=== PATIENT | female | born 1960 | race American Indian/Alaskan Native ===

== ENCOUNTER 2019-12-27 10:23 | Observation (INO) | payer MEDICAID ==
--- NOTE | 2019-12-27 11:01 | Emergency Department Report ---
Blank Doc - Documentation Documentation: 59-year-old female that presents with SOB and chest. This initial assessment/diagnostic orders/clinical plan/treatment(s) is/are subject to change based on patient's health status, clinical progression and re- assessment by fellow clinical providers in the ED. Further treatment and workup at subsequent clinical providers discretion. Patient/guardians urged not to elope from the ED as their condition may be serious if not clinically assessed and managed. Initial orders include: 1- Patient sent to MAIN ED for further evaluation and treatment 2- cardiac workup
--- NOTE | 2019-12-27 11:25 | XRay Report ---
CHEST PA AND LATERAL VIEWS INDICATION: Chest Pain. COMPARISON: None FINDINGS: Support devices: None Heart: Normal Lungs/Pleura: Focal parenchymal density in the right middle lobe, consistent with atelectasis or cons olidation. Lungs are otherwise clear. No pleural fluid. IMPRESSION: 1. Right middle lobe disease, atelectasis versus consolidation. Suggest follow-up. Signer Name: Frandy Zhang MD Signed: 12/27/2019 11:20 AM Workstation Name: [id number]
[2019-12-27] MEDS ORDERED: IPRATROPIUM/ALBUTEROL SULFATE 3 ML AMPUL.NEB IH ONE (11:26)
--- NOTE | 2019-12-27 11:34 | Emergency Department Report ---
ED General Adult HPI - General Chief complaint: Dyspnea/Respdistress Stated complaint: FACIAL SWELLING/HYPERTENSIVE Time Seen by Provider: 12/27/19 10:58 Source: patient Mode of arrival: Ambulatory Limitations: No Limitations - History of Present Illness Initial comments: This is a 59-year-old female who states she is a type I diabetic although she is obese. She appears to have an anxiety disorder. She states that she has to take pain medicine every day but her "primary doctor will not do anything for me". She states that she is not been persistently coughing but noticed some black stuff on her mask yesterday. She tells me that she does not does not take any medication for asthma but "uses an inhaler". She tells me that she has chronic leg pain but is not on gabapentin. She tends to answer most questions to the affirmative. However she does not spontaneously offer any complaint of chest pain or acute pain. She does not report any fever or chills but describes flushing a lot. She admits that she has been on medicine for anxiety in the past as well as chronic opioids. Over the past 24 hours she has noted some periorbital and facial swelling without extremity edema. -: Gradual, days(s) Worsens with: none Associated Symptoms: denies other symptoms, cough, shortness of breath, other. denies: malaise, nausea/vomiting, rash, seizure Treatments Prior to Arrival: none - Related Data Home Medications Medication Instructions Recorded Confirmed Last Taken Albuterol Mdi (or & Nicu Only) 2 puff IH QID PRN 12/27/19 12/27/19 12/26/19 [ProAir HFA Inhaler] Hydralazine HCl 50 mg PO TID 12/27/19 12/27/19 12/26/19 Irbesartan [Avapro] 300 mg PO DAILY 12/27/19 12/27/19 12/26/19 Pantoprazole [Protonix] 40 mg PO QDAY 12/27/19 12/27/19 12/26/19 carvediloL [Coreg] 12.5 mg PO BID 12/27/19 12/27/19 12/26/19 Allergies Allergy/AdvReac Type Severity Reaction Status Date / Time morphine Allergy Hives Verified 12/27/19 10:48 ED Review of Systems ROS: Stated complaint: FACIAL SWELLING/HYPERTENSIVE Other details as noted in HPI Constitutional: other (Flushing). denies: chills, fever Eyes: denies: eye pain, eye discharge, vision change ENT: denies: ear pain, throat pain Respiratory: cough (Infrequent), shortness of breath, wheezing Cardiovascular: denies: chest pain, palpitations Endocrine: no symptoms reported Gastrointestinal: denies: abdominal pain, nausea, diarrhea Genitourinary: denies: urgency, dysuria, discharge Musculoskeletal: denies: back pain, joint swelling, arthralgia Skin: denies: rash, lesions Neurological: denies: headache, weakness, paresthesias Psychiatric: denies: anxiety, depression Hematological/Lymphatic: denies: easy bleeding, easy bruising ED Past Medical Hx - Past Medical History Previous Medical History?: Yes Hx Hypertension: Yes Hx Diabetes: Yes (Type 1) Hx Asthma: Yes Hx COPD: Yes Additional medical history: Bronchitis - Surgical History Past Surgical History?: No - Medications Home Medications: Home Medications Medication Instructions Recorded Confirmed Last Taken Type Albuterol Mdi (or & Nicu Only) 2 puff IH QID PRN 12/27/19 12/27/19 12/26/19 History [ProAir HFA Inhaler] Hydralazine HCl 50 mg PO TID 12/27/19 12/27/19 12/26/19 History Irbesartan [Avapro] 300 mg PO DAILY 12/27/19 12/27/19 12/26/19 History Pantoprazole [Protonix] 40 mg PO QDAY 12/27/19 12/27/19 12/26/19 History carvediloL [Coreg] 12.5 mg PO BID 12/27/19 12/27/19 12/26/19 History ED Physical Exam - General Limitations: No Limitations General appearance: alert, in no apparent distress, obese - Head Head exam: Present: atraumatic, normocephalic - Eye Eye exam: Present: normal appearance - ENT ENT exam: Present: mucous membranes moist - Neck Neck exam: Present: normal inspection - Respiratory Respiratory exam: Present: normal lung sounds bilaterally. Absent: respiratory distress - Cardiovascular Cardiovascular Exam: Present: regular rate, normal rhythm. Absent: systolic murmur, diastolic murmur, rubs, gallop - GI/Abdominal GI/Abdominal exam: Present: soft, normal bowel sounds. Absent: distended, te nderness, guarding, rebound, rigid - Extremities Exam Extremities exam: Present: normal inspection. Absent: calf tenderness - Back Exam Back exam: Present: normal inspection - Neurological Exam Neurological exam: Present: alert, oriented X3, CN II-XII intact. Absent: motor sensory deficit - Psychiatric Psychiatric exam: Present: anxious. Absent: normal mood (Labile) - Skin Skin exam: Present: warm, dry, intact, normal color. Absent: rash ED Course Vital Signs 12/27/19 12/27/19 12/27/19 10:49 11:30 11:35 Temperature 98.7 F Pulse Rate 103 H Pulse Rate [ Posterior Bilateral Throughout] Respiratory 20 18 Rate Respiratory Rate [Posterior Bilateral Throughout] Blood Pressure O2 Sat by Pulse 96 97 Oximetry 12/27/19 12/27/19 12/27/19 11:42 11:45 12:01 Temperature Pulse Rate 90 95 H Pulse Rate [ 96 H Posterior Bilateral Throughout] Respiratory 16 14 Rate Respiratory 17 Rate [Posterior Bilateral Throughout] Blood Pressure 150/96 150/96 O2 Sat by Pulse 100 95 Oximetry 12/27/19 12/27/19 12/27/19 12:15 12:31 12:45 Temperature Pulse Rate 87 83 86 Pulse Rate [ Posterior Bilateral Throughout] Respiratory 14 12 12 Rate Respiratory Rate [Posterior Bilateral Throughout] Blood Pressure 150/96 150/96 150/96 O2 Sat by Pulse 96 88 93 Oximetry 12/27/19 12/27/19 13:01 13:15 Temperature Pulse Rate 95 H Pulse Rate [ Posterior Bilateral Throughout] Respiratory 17 11 L Rate Respiratory Rate [Posterior Bilateral Throughout] Blood Pressure 150/96 150/96 O2 Sat by Pulse 92 96 Oximetry - Reevaluation(s) Reevaluation #1: Patient with increased work of breathing. Her pulse oximetry was 89% on room air. She is referred to the hospitalist service for further care and nitesh luation. CT of the chest appears to show a pneumonia. Official reading is pending. She is referred for admission for pneumonia, hypoxia, COPD exacerbation 12/27/19 14:18 ED Medical Decision Making - Lab Data Result diagrams: 12/27/19 11:45 12/27/19 11:45 Laboratory Results - last 24 hr 12/27/19 12/27/19 12/27/19 11:45 11:45 11:45 WBC 8.0 RBC 4.03 Hgb 12.8 Hct 37.8 MCV 94 MCH 32 MCHC 34 RDW 13.7 Plt Count 351 Lymph % (Auto) 30.0 [place] % (Auto) 9.1 H Eos % (Auto) 2.3 Baso % (Auto) 0.9 Lymph # (Auto) 2.4 [place] # (Auto) 0.7 Eos # (Auto) 0.2 Baso # (Auto) 0.1 Seg Neutrophils % 57.7 Seg Neutrophils # 4.6 PT 11.9 L INR 0.86 L APTT 28.3 Troponin T < 0.010 NT-Pro-B Natriuret Pep 55.28 Laboratory Results - last 24 hr 12/27/19 12/27/19 12/27/19 11:45 11:45 11:45 WBC 8.0 RBC 4.03 Hgb 12.8 Hct 37.8 MCV 94 MCH 32 MCHC 34 RDW 13.7 Plt Count 351 Lymph % (Auto) 30.0 [place] % (Auto) 9.1 H Eos % (Auto) 2.3 Baso % (Auto) 0.9 Lymph # (Auto) 2.4 [place] # (Auto) 0.7 Eos # (Auto) 0.2 Baso # (Auto) 0.1 Seg Neutrophils % 57.7 Seg Neutrophils # 4.6 PT 11.9 L INR 0.86 L APTT 28.3 Sodium 139 Potassium 4.5 Chloride 100.4 Carbon Dioxide 32 H Anion Gap 11 BUN 16 Creatinine 0.9 Estimated GFR > 60 BUN/Creatinine Ratio 18 Glucose 162 H Calcium 9.1 Total Bilirubin 0.20 AST 16 ALT 19 Alkaline Phosphatase 151 H Troponin T < 0.010 NT-Pro-B Natriuret Pep 55.28 Total Protein 7.6 Albumin 3.8 L Albumin/Globulin Ratio 1.0 - EKG Data -: EKG Interpreted by Me EKG shows normal: sinus rhythm, axis (Leftward), intervals, QRS complexes, ST-T waves Rate: normal - EKG Data Interpretation: nonspecific ST-T wave lulu - Radiology Data Radiology results: report reviewed, image reviewed (Looks like the patient has an anterior pneumonia to me. Radiologist interpretation is pending.) Atelectasis versus consolidation. Radiologist recommends follow-up. Critical care attestation.: If time is entered above; I have spent that time in minutes in the direct care of this critically ill patient, excluding procedure time. ED Disposition Clinical Impression: Hypoxia Dyspnea Qualifiers: Dyspnea type: unspecified Qualified Code(s): R06.00 - Dyspnea, unspecified Pneumonia Qualifiers: Pneumonia type: due to unspecified organism Laterality: right Lung location: middle lobe of lung Qualified Code(s): J18.9 - Pneumonia, unspecified organism Disposition: OP ADMIT IP TO THIS HOSP Is pt being admited?: Yes Does the pt Need Aspirin: Yes Condition: Stable Instructions: Shortness of Breath, Adult, Bacterial Pneumonia (ED) Additional Instructions: Follow-up with family physician and or pulmonary doctor for further care and evaluation of your shortness of breath. We are going to place you on an antibiotic for now. Return any acute change or problem. Referrals: PRIMARY CARE, [Primary Care Provider] - 3-5 Days Time of Disposition: 14:20
[2019-12-27 12:34] LABS: Basophils # (Auto) 0.1 K/mm3 (0.0-0.1); Basophils % (Auto) 0.9 % (0.0-1.8); Eosinophils # (Auto) 0.2 K/mm3 (0.0-0.4); Eosinophils % (Auto) 2.3 % (0.0-4.3); Hematocrit 37.8 % (30.3-42.9); Hemoglobin 12.8 gm/dl (10.1-14.3); Lymphocytes # (Auto) 2.4 K/mm3 (1.2-5.4); Mean Corpuscular HGB Conc 34 % (30-34); Mean Corpuscular Volume 94 fl (79-97); Monocytes # (Auto) 0.7 K/mm3 (0.0-0.8); Monocytes % (Auto) 9.1 % (0.0-7.3); Platelet Count 351 K/mm3 (140-440); Red Blood Count 4.03 M/mm3 (3.65-5.03); Red Cell Distribution Width 13.7 % (13.2-15.2)
[2019-12-27 12:44] LABS: INR 0.86 (0.87-1.13); Partial Thromboplastin Time 28.3 Sec. (24.2-36.6)
[2019-12-27 12:52] LABS: Alanine Aminotransferase 19 units/L (7-56); Albumin 3.8 g/dL (3.9-5); BUN/Creatinine Ratio 18; Blood Urea Nitrogen 16 mg/dL (7-17); Calcium 9.1 mg/dL (8.4-10.2); Hemolysis Index 16
[2019-12-27] MEDS ORDERED: ASPIRIN 81 MG TAB CHEW PO ONE (14:21)
[2019-12-27] MEDS ORDERED: ONDANSETRON 4 MG/2 ML INJ IV PRN (14:39)
[2019-12-27] MEDS ORDERED: ALBUTEROL 2.5 MG/3 ML NEBU IH PRN (14:39)
[2019-12-27] MEDS ORDERED: ACETAMINOPHEN 325 MG TAB PO PRN (14:39)
--- NOTE | 2019-12-27 14:46 | History and Physical Report ---
History of Present Illness Chief complaint: My breathing has been bad for 2 days History of present illness: 59 YO Female with HTN, GERD, COPD, Obesity Hypoventilation Syndrome, [place], Asthma Mild Intermittent, DM presents to ED for evaluation. Patient states that she has experienced "a hard time breathing" over the past 2 days with persistently worsening symptoms over the same timeframe. Patient acknowledges increased productive cough with clear sputum, without relief with using increased nebulizer therapy, and increased use of inhaler. Patient transported to [facility] via private vehicle for further care and evaluation of the aforementioned symptoms. Patient seen and evaluated in the emergency department. Lab and imaging studies reviewed. Patient found to be in moderate respiratory distress. Patient is sitting in bed, using accessory muscles to breathe. Patient is unable to speak in complete sentences due to shortness of breath. Patient underwent chest x-ray and was found to have right-sided infiltrate consistent with pneumonia, as well as acute respiratory failure secondary to COPD exacerbation with a pulse oximetry or 88% on Room Air. Patient treated with supplemental oxygen, and IV steroid therapy with mild improvement in symptoms. Patient admitted to medical floor for further care due to increased risk of worsening symptoms. Patient denies fever, chills, chest pain, palpitations, skin rash, recent ill contacts, or known exposure to COVID-19. No prior admission for review. All medication listed at time of admission has been reconciled. Advanced care planning conducted in ED. Past History Past Medical History: diabetes, GERD, hypertension, other (See HPI) Past Surgical History: No surgical history, Other (Reviewed) Social history: single. denies: smoking, alcohol abuse, prescription drug abuse Family history: diabetes, hypertension Medications and Allergies Allergies Allergy/AdvReac Type Severity Reaction Status Date / Time morphine Allergy Hives Verified 12/27/19 10:48 Home Medications Medication Instructions Recorded Confirmed Last Taken Type Albuterol Mdi (or & Nicu Only) 2 puff IH QID PRN 12/27/19 12/27/19 12/26/19 History [ProAir HFA Inhaler] Hydralazine HCl 50 mg PO TID 12/27/19 12/27/19 12/26/19 History Irbesartan [Avapro] 300 mg PO DAILY 12/27/19 12/27/19 12/26/19 History Pantoprazole [Protonix] 40 mg PO QDAY 12/27/19 12/27/1912/25/20 History carvediloL [Coreg] 12.5 mg PO BID 12/27/19 12/27/19 12/26/19 History Active Meds: Active Medications Acetaminophen (Tylenol) 650 mg PO Q4H PRN PRN Reason: Pain MILD(1-3)/Fever >100.5/GONCALVES Albuterol (Proventil) 2.5 mg IH Q4HRT PRN PRN Reason: Shortness Of Breath Carvedilol (Coreg) 12.5 mg PO BID [facility] Levofloxacin/Dextrose (Levaquin 750mg/150ml) 750 mg in 150 mls @ 100 mls/hr IV Q24HR JENNA; Protocol Miscellaneous Medication (Hydralazine Hcl [Hydralazine Hcl]) 50 mg PO TID [facility] Miscellaneous Medication (Irbesartan [Avapro]) 300 mg PO DAILY [facility] Ondansetron HCl (Zofran) 4 mg IV Q8H PRN PRN Reason: Nausea And Vomiting Pantoprazole Sodium (Protonix) 40 mg PO QDAY [facility] Sodium Chloride (Sodium Chloride Flush Syringe 10 Ml) 10 ml IV BID [facility] Sodium Chloride (Sodium Chloride Flush Syringe 10 Ml) 10 ml IV PRN PRN PRN Reason: LINE FLUSH Review of Systems Constitutional: no weight loss, no weight gain, no fever Ears, nose, mouth and throat: no ear pain, no ear discharge, no tinnitis Breasts: no change in shape, no swelling Cardiovascular: no chest pain, no orthopnea, no rapid/irregular heart beat, no syncope Respiratory: cough (Acute 10 minutes ago okay), cough with sputum, excessive sputum, shortness of breath Gastrointestinal: no abdominal pain, no nausea, no vomiting, no diarrhea, no constipation Genitourinary Female: no pelvic pain, no flank pain, no dysuria Rectal: no pain, no incontinence, no bleeding Musculoskeletal: no neck pain, no shooting arm pain, no arm numbness/tingling, no low back pain, no shooting leg pain Integumentary: no rash, no pruritis, no redness, no sores, no wounds Neurological: no paralysis, no weakness, no parathesias, no numbness, no tingling Psychiatric: anxiety, no memory loss, no change in sleep habits, no insomnia, no hypersomnia, no change in appetite Endocrine: no cold intolerance, no heat intolerance, no excessive thirst, no nocturia Hematologic/Lymphatic: no easy bruising, no easy bleeding Allergic/Immunologic: no urticaria, no allergic rhinitis Exam - Constitutional Vitals: Temp Pulse Resp BP Pulse Ox 98.7 F 95 H 11 L 150/96 96 12/27/19 10:49 12/27/19 13:01 12/27/19 13:15 12/27/19 13:15 12/27/19 13:15 General appearance: Present: mild distress, obese - EENT Eyes: Present: PERRL ENT: hearing intact, clear oral mucosa - Neck Neck: Present: supple, normal ROM - Respiratory Respiratory effort: normal, labored, accessory muscle use Respiratory: bilateral: diminished, rhonchi - Cardiovascular Rhythm: other (Tachycardia) Heart Sounds: Present: S1 & S2. Absent: rub, click - Extremities Extremities: pulses symmetrical, No edema Peripheral Pulses: within normal limits - Abdominal General gastrointestinal: Present: soft, non-tender, non-distended, normal bowel sounds Female genitourinary: Present: normal - Integumentary Integumentary: Present: clear, warm, dry - Musculoskeletal Musculoskeletal: gait normal, strength equal bilaterally - Psychiatric Psychiatric: appropriate mood/affect, intact judgment & insight - Neurologic Neurologic: CNII-XII intact, moves all extremities HEART Score - HEART Score Troponin: Troponin T < 0.010 ng/mL (0.00-0.029) 12/27/19 11:45 Results - Labs CBC & Chem 7: 12/27/19 11:45 12/27/19 11:45 Labs: Abnormal lab results 12/27/19 12/27/19 12/27/19 Range/Units 11:45 11:45 11:45 [place] % (Auto) 9.1 H (0.0-7.3) % PT 11.9 L (12.2-14.9) Sec. INR 0.86 L (0.87-1.13) Carbon Dioxide 32 H (22-30) mmol/L Glucose 162 H (65-100) mg/dL Alkaline Phosphatase 151 H (35-129) units/L Albumin 3.8 L (3.9-5) g/dL Assessment and Plan - Patient Problems (1) COPD with exacerbation Current Visit: Yes Status: Acute Plan to address problem: Chest x-ray, pulse oximetry, nebulizer therapy, IV steroid therapy, supportive care. Pulmonary toilet, (2) Acute respiratory failure Current Visit: Yes Status: Acute Qualifiers: Respiratory failure complication: hypoxia Qualified Code(s): J96.01 - Acute respiratory failure with hypoxia Plan to address problem: Supplemental oxygen, nebulizer therapy, pulse oximetry, supportive care. (3) Pneumonia Current Visit: Yes Status: Acute Plan to address problem: Pneumonia protocol: IV antibiotic therapy, CBC, CMP, chest x-ray, blood culture, (4) Obesity hypoventilation syndrome Current Visit: Yes Status: Acute (5) Diabetes Current Visit: Yes Status: Acute Plan to address problem: Consistent carbohydrate diet, Accu-Chek, hypoglycemia protocol, sliding scale insulin therapy. (6) Accelerated hypertension Current Visit: Yes Status: Acute Plan to address problem: Monitor blood pressure every shift, continue medical management, resume prehospital antihypertensive therapy. (7) DVT prophylaxis Current Visit: Yes Status: Acute Plan to address problem: SCD to bilateral lower extremities while in bed, patient is ambulatory. (8) Advance care planning Current Visit: Yes Status: Acute Plan to address problem: Disease education conducted, patient is full code, prognosis discussed, care plan discussed, patient knowledges understanding and agreement with care plan. +30 minutes.
--- NOTE | 2019-12-27 15:04 | Cat Scan Report ---
CT chest wo con INDICATION: R lung mass vs atelectasis. TECHNIQUE: All CT scans at this location are performed using CT dose reduction for ALARA by means of automated e xposure control. COMPARISON: Chest radiograph done earlier today. FINDINGS: No mediastinal, hilar or axillary adenopathy on this noncontrast exam. Small hiatal hernia. Images th rough the upper abdomen show some lobulation of the liver, raising the possibility of cirrhosis. Increased parenchymal density in the right middle lobe contains air bronchograms and most likely repr esents incomplete atelectasis of the medial segment of the right middle lobe. No appreciable mass. Th ere may be slight bronchial wall thickening, suggesting bronchitis, so this could be a chronic findin g. No pleural fluid. Left lung is clear. No significant skeletal lesions. IMPRESSION: 1. Right middle lobe disease on chest radiograph is thought to be due to atelectasis. Bronchial wall thickening suggests bronchitis, so this could be a chronic finding. Signer Name: Frandy Zhang MD Signed: 12/27/2019 3:00 PM Workstation Name: [id number]
[2019-12-27] MEDS ORDERED: cefTRIAXone/NS 1 GM/50 ML 1 GM/50 ML BAG IV ONE (15:09)
[2019-12-27] MEDS ORDERED: ASPIRIN 81 MG TAB CHEW ONE (15:09)
[2019-12-27] MEDS: cefTRIAXone/NS 1 GM/50 ML 1 GM/50 ML BAG IV ONE ×2 (15:20→15:43)
[2019-12-27] MEDS: hydrALAZINE 25 MG TAB PO SCH ×2 (15:23→23:07)
[2019-12-27] MEDS ORDERED: LOSARTAN 50 MG TAB ONE ×2 (15:34→15:36)
[2019-12-27] MEDS: LOSARTAN 50 MG TAB PO SCH (15:43)
[2019-12-27 16:05] LABS: Bacteria,Urine 1+ /HPF (Negative); Bilirubin,Urine NEG (Negative); Blood,Urine NEG (Negative); Color,Urine Yellow (Yellow); Mucus,Urine FEW /HPF; Protein,Urine <15 mg/dL mg/dL (Negative); Urobilinogen,Urine < 2.0 mg/dL (<2.0)
--- NOTE | 2019-12-27 18:58 | Cat Scan Report ---
CT LUMBAR SPINE WITHOUT CONTRAST INDICATION / CLINICAL INFORMATION: bilateral leg weakness. TECHNIQUE: Axial CT images were obtained through the lumbar spine. Sagittal and coronal reformatted images were produced. All CT scans at this location are performed using CT dose reduction for ALARA by means of a utomated exposure control. COMPARISON: None available. FINDINGS: ALIGNMENT: No significant abnormality of alignment in the lumbar region. VERTEBRAE: No indication of fracture or bone destruction. Incidental note is made of anterior osteoph yte at superior endplate L4 and left lateral osteophyte formation L3-4 and L4-5 levels. DISC SPACES: Calcification of the nucleus pulposus is observed at the L1-2 level. DEGENERATIVE CHANGES: Advanced facet arthropathy is noted at the L4-5 level. Facet hypertrophic arciniega es and bilateral facet joint vacuum phenomenon is observed. Broad-based disc bulge is evident. This c ombination of degenerative changes appears to contribute to moderate central canal stenosis at the L4 -5 level. SPINAL CANAL: Broad-based disc bulge and facet arthropathy contribute to moderate central canal steno sis at the L4-5 level. Spinal canal is adequate in size throughout the remainder the lumbar region. SACRUM:No significant abnormality of the visualized sacrum.. PARASPINAL SOFT TISSUES: No significant abnormality. ADDITIONAL FINDINGS: None. IMPRESSION: 1. Broad-based disc bulge and facet arthropathy appears to result in moderate central canal stenosis at the L4-5 level. Signer Name: Sebastien Burgess MD Signed: 12/27/2019 6:54 PM Workstation Name: [id number]
[2019-12-27] MEDS ORDERED: methylPREDNISolone Sod Succinate 40 MG/1 ML INJ ONE (22:59)
[2019-12-27] MEDS: carvediloL 12.5 MG TAB PO SCH (23:06)
[2019-12-27] MEDS: methylPREDNISolone Sod Succinate 40 MG/1 ML INJ IV SCH (23:07)
[2019-12-28] MEDS ORDERED: ACETAMINOPHEN 325 MG TAB ONE (04:10)
[2019-12-28 05:08] LABS: BUN/Creatinine Ratio 15; Blood Urea Nitrogen 15 mg/dL (7-17); Calcium 9.2 mg/dL (8.4-10.2); Hemolysis Index 82
[2019-12-28] MEDS ORDERED: PANTOPRAZOLE 40 MG TAB PO SCH (07:30)
[2019-12-28 09:34] VITALS: BP 129/54
[2019-12-28] MEDS: carvediloL 12.5 MG TAB PO SCH (10:22)
[2019-12-28] MEDS: hydrALAZINE 25 MG TAB PO SCH ×2 (10:23→18:59)
[2019-12-28] MEDS: methylPREDNISolone Sod Succinate 40 MG/1 ML INJ IV SCH (10:28)
[2019-12-28] MEDS: LOSARTAN 50 MG TAB PO SCH (10:29)
--- NOTE | 2019-12-28 13:39 | Discharge Summary ---
<DEWEY MILANArtem - Last Filed: 12/29/19 07:11> Providers - Providers Date of Admission: 12/27/19 14:39 Attending physician: OFELIA TIAN MD Primary care physician: PETROLEUM SAMPLER Hospitalization Condition: Stable Pertinent studies: - 12/26 CT chest: Right middle lobe disease on chest radiograph is thought to be due to atelectasis. Bronchial wall thickening suggests bronchitis, so this could be a chronic finding. - 12/26 CT L spine: Broad-based disc bulge and facet arthropathy appears to result in moderate central canal stenosis at the L4-5 level. - 12/26 CXR: Right middle lobe disease, atelectasis versus consolidation. Suggest follow-up. Hospital course: 59 YO Female with HTN, GERD, COPD, Obesity Hypoventilation Syndrome, [place], Asthma Mild Intermittent, DM presents to ED for evaluation for complaints of "a hard time breathing" over the past 2 days with persistently worsening symptoms over the same timeframe. Patient acknowledges increased productive cough with clear sputum, without relief with using increased nebulizer therapy, and increased use of inhaler. Patient found to be in moderate respiratory distress. Patient is sitting in bed, using accessory muscles to breathe. Patient is unable to speak in complete sentences due to shortness of breath. Patient underwent chest x-ray and was found to have right-sided infiltrate consistent with pneumonia, as well as acute respiratory failure secondary to COPD exacerbation with a pulse oximetry on 88% on Room Air. Patient treated with supplemental oxygen, and IV steroid therapy with mild improvement in symptoms. Today she complained of persistent intermittent headache therefore a CT head was ordered. She will be discharged with a 3 day course of azithromycin. She will need to followup with her PCP within 1-2 weeks of discharge. (1) COPD with exacerbation Current Visit: Yes Status: Acute Plan to address problem: - Will be discharged with a steriod taper and 3 day course of azithromycin - F/U with PCP post DC - F/u with pulmanory post DC - 12/26 CT chest: Right middle lobe disease on chest radiograph is thought to be due to atelectasis. Bronchial wall thickening suggests bronchitis, so this could be a chronic finding. - 12/26 CT L spine: Broad-based disc bulge and facet arthropathy appears to result in moderate central canal stenosis at the L4-5 level. - 12/26 CXR: Right middle lobe disease, atelectasis versus consolidation. Suggest follow-up. (2) Acute respiratory failure Current Visit: Yes Status: Acute Qualifiers: Respiratory failure complication: hypoxia Qualified Code(s): J96.01 - Acute respiratory failure with hypoxia Plan to address problem: - Pre/Post ambulation oxygenation, ambulation SpO2 on RA was 96% and on oxygen it was 100% - If DC with DME of home oxygen if qualifies, does not qualify (3) Pneumonia Current Visit: Yes Status: Acute Plan to address problem: - Will be discharged with a 3 day course of azithromycin - 12/26 CT chest: Right middle lobe disease on chest radiograph is thought to be due to atelectasis. Bronchial wall thickening suggests bronchitis, so this could be a chronic finding. (4) Obesity hypoventilation syndrome Current Visit: Yes Status: chronic - Will need to follow up with a stock checker for outpt PFT (5) Diabetes Current Visit: Yes Status: chronic Plan to address problem: - Continue cardiac consistent card diet - Resume home antidiabetic regimen (6) Accelerated hypertension Current Visit: Yes Status: resolved Plan to address problem: - Resume home antihypertensive regimen - BP monitoring per PCP Disposition: DC-01 TO HOME OR SELFCARE Time spent for discharge: 35 Core Measure Documentation - Palliative Care Palliative Care/ Comfort Measures: Not Applicable - Core Measures Any of the following diagnoses?: none Exam - Constitutional Vitals: Temp Pulse Resp BP Pulse Ox 99.1 F 88 18 129/54 98 12/28/19 10:12 12/28/19 10:29 12/28/19 10:12 12/28/19 10:29 12/28/19 10:12 General appearance: Present: no acute distress - EENT Eyes: Present: PERRL, EOM intact ENT: hearing intact, poor dentition - Neck Neck: Present: supple, normal ROM - Respiratory Respiratory effort: normal Respiratory: bilateral: diminished, rhonchi - Cardiovascular Rhythm: regular Heart Sounds: Present: S1 & S2. Absent: systolic murmur, diastolic murmur - Extremities Extremities: no ischemia, pulses intact, pulses symmetrical, No edema, normal temperature, normal color, Full ROM Peripheral Pulses: within normal limits - Abdominal General gastrointestinal: Present: soft, non-tender, non-distended, normal bowel sounds - Integumentary Integumentary: Present: clear, warm, dry - Musculoskeletal Musculoskeletal: strength equal bilaterally - Psychiatric Psychiatric: appropriate mood/affect, cooperative - Neurologic Neurologic: CNII-XII intact, no focal deficits, moves all extremities - Allied Health Allied health notes reviewed: nursing Plan Activity: advance as tolerated Diet: low fat, low cholesterol, low salt, diabetic Special Instructions: record daily BP diary, record blood sugar diary Additional Instructions: Repor to your nearest ED or contact your PCP if you experience worsening symptoms. Follow up with your PCP within 1-2 weeks of discharge. Followyp with a pulmanory doctor outpatient. You will be discharged with a steriod taper and 3 day course of azithromycin. Follow up with: PRIMARY CARE, [Primary Care Provider] - 3-5 Days MATA DEL RIO MD [Staff Physician] - 7 Days PHILL WOODS MD [Staff Physician] - 7 Days Prescriptions: carvediloL [Coreg] 12.5 mg PO BID #60 tab Hydralazine HCl 50 mg PO TID #90 tab levoFLOXacin [Levaquin TAB] 750 mg PO Q24HR #3 tablet Prednisone [predniSONE 10 mg (6-Day Pack, 21 Tabs)] 10 mg PO .TAPER #1 tab.ds.pk Pantoprazole [Protonix TAB] 40 mg PO QDAY #30 tab <OFELIA TIAN - Last Filed: 12/29/19 08:50> Providers - Providers Date of Admission: 12/27/19 14:39 Attending physician: OFELIA TIAN MD Primary care physician: PETROLEUM SAMPLER Hospitalization Hospital course: I saw and evaluated the patient. I agree with the findings and the plan of care as documented in the Nurse Practitioner's~note, with the following corrections and additions. Exam - Constitutional Vitals: Temp Pulse Resp BP Pulse Ox 99.1 F 88 18 129/54 96 12/28/19 10:12 12/28/19 10:29 12/28/19 10:12 12/28/19 10:29 12/28/19 14:41
[2019-12-28] MEDS ORDERED: SODIUM POLYSTYRENE 15 GM/60 ML ORAL LIQD PO SCH (14:30)
--- NOTE | 2019-12-28 18:23 | Cat Scan Report ---
NONENHANCED CT SCAN OF THE HEAD: INDICATION / CLINICAL INFORMATION: 59 years Female; perisitent headache. TECHNIQUE: Routine CT head without contrast. All CT scans at this location are performed using CT dos e reduction for ALARA by means of automated exposure control. COMPARISON: None. FINDINGS: BRAIN / INTRACRANIAL CONTENTS: No acute hemorrhage, mass effect, midline shift, hydrocephalus, or acu te, large territorial infarct. No chronic infarct or focal atrophy. Normal brain volume and ventricul ar/sulcal size for age. No significant white matter abnormality. CRANIOCERVICAL JUNCTION: No significant abnormality. ORBITS: No significant abnormality of visualized orbits. Palpebral segments of both lacrimal glands a re prominent symmetrically SINUSES / MASTOIDS: No significant abnormality of the visualized paranasal sinuses or mastoid air alondra ls. ADDITIONAL FINDINGS: None. IMPRESSION: Normal nonenhanced CT scan of brain Signer Name: Julisa Carroll MD Signed: 12/28/2019 6:18 PM Workstation Name: [id number]
[2019-12-29] MEDS ORDERED: levoFLOXacin 750 MG TAB PO SCH (10:00)
== END 2019-12-28 19:39 | disposition home or self-care (01) ==
LOC: ED 10:23 → 3A 14:39
PROVIDERS: ADMIT Internal Medicine; ATTEND Internal Medicine
DX: J96.01 Acute respiratory failure with hypoxia (principal); J44.1 Chronic obstructive pulmonary disease with (acute) exacerbation; J18.9 Pneumonia, unspecified organism; E66.2 Morbid (severe) obesity with alveolar hypoventilation; I10 Essential (primary) hypertension; E10.9 Type 1 diabetes mellitus without complications; K21.9 Gastro-esophageal reflux disease without esophagitis; Z68.38 Body mass index [BMI] 38.0-38.9, adult; Z79.899 Other long term (current) drug therapy
CPT/HCPCS: 36415; 70450; 71046; 71250; 72131; 80048; 80053; 81001; 83880; 84484; 85025; 85610; 85730; 87040; 87086; 93005; 94644; 96365; 96366; 96367; 96375; 96376; 99285; G0378; J0696; J1956; J2920; 71260

== ENCOUNTER 2020-12-03 10:08 | Emergency (ER) | payer MEDICAID ==
[2020-12-03] MEDS ORDERED: SODIUM CHLORIDE 0.9% 1000 ML 1,000 ML IV ONE (10:50)
--- NOTE | 2020-12-03 10:50 | Emergency Department Report ---
ED Shortness of Breath HPI - General Chief Complaint: Dyspnea/Respdistress Stated Complaint: COVID SYMPTOMS Time Seen by Provider: 12/03/20 10:39 Source: patient Mode of arrival: Stretcher Limitations: No Limitations - History of Present Illness Initial Comments: Patient was brought in by ambulance after a syncopal event. Patient states she got up this morning. She felt okay. The next thing she knows, she was lying in the floor. She has no recollection of the event. She does not know why she might have passed out. She is never passed out before. Currently, she is not having any pain. She denies headache or chest pain. She is no back pain. He has no shortness of breath. She has no nausea vomiting. Patient states that she has not been ill recently. She is never passed out. She states that she did not feel this coming on. There was no prodrome. She just simply passed out. Per report, there was no documented seizure activity. Patient was not postictal. - Related Data Home Medications Medication Instructions Recorded Confirmed Last Taken Albuterol Mdi (or & Nicu Only) 2 puff IH QID PRN 12/27/19 12/03/20 12/03/20 10:37 [ProAir HFA Inhaler] Previous Rx's Medication Instructions Recorded Last Taken Type Hydralazine HCl 50 mg PO TID #90 tab 12/28/19 Unknown Rx Pantoprazole [Protonix TAB] 40 mg PO QDAY #30 tab 12/28/19 Unknown Rx Prednisone [predniSONE 10 mg 10 mg PO .TAPER #1 tab.ds.pk 12/28/19 Unknown Rx (6-Day Pack, 21 Tabs)] carvediloL [Coreg] 12.5 mg PO BID #60 tab 12/28/19 Unknown Rx levoFLOXacin [Levaquin TAB] 750 mg PO Q24HR #3 tablet 12/28/19 Unknown Rx Allergies Allergy/AdvReac Type Severity Reaction Status Date / Time morphine Allergy Hives Verified 12/27/19 10:48 ED Review of Systems ROS: Stated complaint: COVID SYMPTOMS Other details as noted in HPI Comment: All other systems reviewed and negative Constitutional: denies: fever Eyes: denies: vision change ENT: denies: throat pain Respiratory: denies: cough Cardiovascular: denies: chest pain, palpitations Endocrine: denies: unexplained weight loss Gastrointestinal: denies: abdominal pain Genitourinary: denies: dysuria Musculoskeletal: denies: back pain Skin: denies: rash Neurological: denies: headache Hematological/Lymphatic: denies: easy bruising ED Past Medical Hx - Past Medical History Previous Medical History?: Yes Hx Hypertension: Yes Hx Diabetes: Yes (Type 1) Hx Asthma: Yes Hx COPD: Yes Additional medical history: Bronchitis - Family History Family history: hypertension - Social History Smoking Status: Former Smoker - Medications Home Medications: Home Medications Medication Instructions Recorded Confirmed Last Taken Type Albuterol Mdi (or & Nicu Only) 2 puff IH QID PRN 12/27/19 12/03/20 12/03/20 10:37 History [ProAir HFA Inhaler] Hydralazine HCl 50 mg PO TID #90 tab 12/28/19 12/03/20 Unknown Rx Pantoprazole [Protonix TAB] 40 mg PO QDAY #30 tab 12/28/19 12/03/20 Unknown Rx Prednisone [predniSONE 10 mg 10 mg PO .TAPER #1 tab.ds.pk 12/28/19 12/03/20 Unknown Rx (6-Day Pack, 21 Tabs)] carvediloL [Coreg] 12.5 mg PO BID #60 tab 12/28/19 12/03/20 Unknown Rx levoFLOXacin [Levaquin TAB] 750 mg PO Q24HR #3 tablet 12/28/19 12/03/20 Unknown Rx ED Physical Exam - General Limitations: No Limitations, Other (Pulse ox was noted and normal.) General appearance: alert, in no apparent distress, obese (Mild to moderate) - Head Head exam: Present: atraumatic, normocephalic, normal inspection - Eye Eye exam: Present: normal appearance, PERRL, EOMI. Absent: scleral icterus - ENT ENT exam: Present: normal exam, normal orophraynx - Neck Neck exam: Present: normal inspection. Absent: tenderness, meningismus - Respiratory Respiratory exam: Present: normal lung sounds bilaterally. Absent: respiratory distress - Cardiovascular Cardiovascular Exam: Present: regular rate. Absent: normal rhythm - GI/Abdominal GI/Abdominal exam: Present: soft. Absent: tenderness, pulsatile mass - Extremities Exam Extremities exam: Present: normal capillary refill. Absent: calf tenderness - Back Exam Back exam: Absent: CVA tenderness (R), CVA tenderness (L) - Neurological Exam Neurological exam: Present: alert, oriented X3, CN II-XII intact, normal gait. Absent: motor sensory deficit - Psychiatric Psychiatric exam: Present: normal affect, normal mood - Skin Skin exam: Present: warm, dry ED Course Vital Signs 12/03/20 12/03/20 12/03/20 10:26 10:47 11:07 Temperature 99.8 F H 98.8 F Pulse Rate 102 H 97 H 83 Respiratory 20 16 16 Rate Blood Pressure 117/84 Blood Pressure 141/95 134/86 [Right] O2 Sat by Pulse 100 100 95 Oximetry - Reevaluation(s) Reevaluation #1: 12/03/20 10:50 IV and labs ordered. X-ray was ordered. Reevaluation #2: 12/03/20 12:05 Labs have been reviewed. At this time, etiology for the syncope is not known. Patient does not have evidence of cardiac dysrhythmia here. There is no change in troponin. There is no profound electrolyte derangement. There is no seizure activity. There is no neurologic deficit concerning for stroke. ED Medical Decision Making - Lab Data Result diagrams: 12/03/20 11:06 12/03/20 11:06 Rhythm strip: Normal sinus rhythm without ectopy per monitor observe 10 seconds. - EKG Data -: EKG Interpreted by Me - EKG Data 12/03/20 12:19 1050-EKG shows normal sinus rhythm at 95. Patient has no ST elevation to suggest infarct. There is generalized T wave flattening in V4 through V6 as well as 1 and aVL. There is no ST elevation to suggest any. There is no ectopy noted. Intervals are normal including a QRS of 79 and a QT corrected of 438. - Medical Decision Making patient presented secondary to syncope. Etiology is not known. There was no prodromal symptom. She does not have cardiac dysrhythmia here. There is no evidence of STEMI or NSTEMI. There is no electrolyte derangement. She is not profoundly dehydrated. She really was not profoundly orthostatic. Patient was treated symptomatically. There was no indication for CT as she was neurologically normal during my evaluation. Critical care attestation.: If time is entered above; I have spent that time in minutes in the direct care of this critically ill patient, excluding procedure time. ED Disposition Clinical Impression: Syncope Qualifiers: Syncope type: unspecified Qualified Code(s): R55 - Syncope and collapse Disposition: 01 HOME / SELF CARE / HOMELESS Is pt being admited?: No Condition: Stable Instructions: Syncope, Syncope (ED) Additional Instructions: Drink plenty of water. Return for problems. Follow-up with your regular doctor for recheck and further management. Avoid caffeine. Referrals: PRIMARY CARE, [Referring] - 3-5 Days SANDRA EASTMAN MD [Staff Physician] - 3-5 Days
[2020-12-03 11:08] VITALS: BP 134/86
[2020-12-03 11:15] LABS: Hematocrit 39.3 % (30.3-42.9); Hemoglobin 13.5 gm/dl (10.1-14.3); Mean Corpuscular HGB Conc 34 % (30-34); Mean Corpuscular Volume 94 fl (79-97); Platelet Count 360 K/mm3 (140-440); Red Blood Count 4.18 M/mm3 (3.65-5.03); Red Cell Distribution Width 13.2 % (13.2-15.2)
[2020-12-03 11:33] LABS: BUN/Creatinine Ratio 12; Blood Urea Nitrogen 13 mg/dL (7-17); Calcium 9.8 mg/dL (8.4-10.2); Hemolysis Index 5
--- NOTE | 2020-12-07 10:09 | Electrocardiograph Report ---
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
== END 2020-12-03 13:08 | disposition home or self-care (01) ==
LOC: ED 10:08
DX: R55 Syncope and collapse (principal); I10 Essential (primary) hypertension; E10.8 Type 1 diabetes mellitus with unspecified complications; J44.9 Chronic obstructive pulmonary disease, unspecified; Z87.891 Personal history of nicotine dependence; Z88.5 Allergy status to narcotic agent
CPT/HCPCS: 36415; 80048; 82962; 84484; 85027; 93005; 99284; J7030

== ENCOUNTER 2021-08-16 10:45 | Emergency (ER) | payer MEDICAID ==
[2021-08-16 14:46] LABS: Calcium 9.7 mg/dL (8.4-10.2)
[2021-08-16 14:53] LABS: Hematocrit 42.1 % (30.3-42.9); Hemoglobin 14.1 gm/dl (10.1-14.3); Mean Corpuscular HGB Conc 34 % (30-34); Mean Corpuscular Volume 94 fl (79-97); Platelet Count 409 K/mm3 (140-440); Red Cell Distribution Width 13.6 % (13.2-15.2)
--- NOTE | 2021-08-16 15:42 | Emergency Department Report ---
Blank Doc - Documentation Documentation: 61-year-old female presents to the ED via ambulance complaining right flank pain and urinary retention. Patient states that she has been able to unable to urinate x1 day. Patient has uncontrolled hypertension and states that she has been back and forth to her primary care doctor trying to get her hypertension under control. This initial assessment/diagnostic orders/clinical plan/treatment(s) is/are subject to change based on patients health status, clinical progression and re- assessment by fellow clinical providers in the ED. Further treatment and workup at subsequent clinical providers discretion. Patient/guardian urged not to elope from the ED as their condition may be serious if not clinically assessed and managed.
[2021-08-16] MEDS ORDERED: HYDROmorphone 0.5 MG/0.5 ML INJ IV ONE (16:13)
[2021-08-16] MEDS ORDERED: METOCLOPRAMIDE 10 MG/2 ML INJ IV ONE (16:13)
--- NOTE | 2021-08-16 16:14 | Emergency Department Report ---
ED General Adult HPI - General Chief complaint: High BP Stated complaint: Difficulty urinating Time Seen by Provider: 08/16/21 15:54 Source: patient, EMS ( EMS documentation not available at time of chart dictation ), RN notes reviewed Mode of arrival: Stretcher Limitations: No Limitations - History of Present Illness Initial comments: The patient was evaluated in the emergency department for symptoms described in the history of present illness. He/she was evaluated in the context of the global COVID-19 pandemic, which necessitated consideration that the patient might be at risk for infection with the virus that causes COVID-19. Institutional protocols and algorithms that pertain to the evaluation of patients at risk for COVID-19 are in a state of rapid change based on information released by regulatory bodies including the CDC and federal and state organizations. These policies and algorithms were followed during the patient's care in the emergency department. Please note that these policies, procedures and recommendations changed on a rapid basis. This is a 61-year-old female. She presents to the ER today with complaint of suprapubic abdominal pain distention, and difficulty urinating and inability to urinate. She was last able to urinate 1 week ago. She also has right-sided flank pain. Positive nausea. No vomiting. Positive dysuria. -: Gradual, days(s) Location: abdomen Radiation: flank Consistency: constant Improves with: none Worsens with: movement (Movement and palpation) - Related Data Home Medications Medication Instructions Recorded Confirmed Last Taken Albuterol Mdi (or & Nicu Only) 2 puff IH QID PRN 12/27/19 12/03/20 12/03/20 10:37 [ProAir HFA Inhaler] Previous Rx's Medication Instructions Recorded Last Taken Type Hydralazine HCl 50 mg PO TID #90 tab 12/28/19 Unknown Rx Pantoprazole [Protonix TAB] 40 mg PO QDAY #30 tab 12/28/19 Unknown Rx Prednisone [predniSONE 10 mg 10 mg PO .TAPER #1 tab.ds.pk 12/28/19 Unknown Rx (6-Day Pack, 21 Tabs)] carvediloL [Coreg] 12.5 mg PO BID #60 tab 12/28/19 Unknown Rx levoFLOXacin [Levaquin TAB] 750 mg PO Q24HR #3 tablet 12/28/19 Unknown Rx HYDROcodone/ACETAMINOPHEN 1 each PO Q6HR PRN #9 tab 08/16/21 Unknown Rx [Hydrocodone-Acetamin 2.5-325] Metoclopramide [Reglan] 10 mg PO Q6HR PRN #20 tab 08/16/21 Unknown Rx Sulfamethoxazole/Trimethoprim 1 each PO BID #9 tab 08/16/21 Unknown Rx [Bactrim DS TAB] Allergies Allergy/AdvReac Type Severity Reaction Status Date / Time morphine Allergy Hives Verified 12/27/19 10:48 ED Review of Systems ROS: Stated complaint: PELVIC PAIN Other details as noted in HPI Constitutional: denies: fever Eyes: denies: eye discharge ENT: denies: epistaxis Respiratory: denies: cough Cardiovascular: denies: chest pain Gastrointestinal: abdominal pain, nausea Genitourinary: dysuria, other (Hesitancy) Musculoskeletal: back pain Neurological: denies: weakness Psychiatric: anxiety ED Past Medical Hx - Past Medical History Previous Medical History?: Yes Hx Hypertension: Yes Hx Diabetes: Yes (Type 1) Hx Asthma: Yes Hx COPD: Yes Additional medical history: Bronchitis - Social History Smoking Status: Former Smoker - Medications Home Medications: Home Medications Medication Instructions Recorded Confirmed Last Taken Type Albuterol Mdi (or & Nicu Only) 2 puff IH QID PRN 12/27/19 12/03/20 12/03/20 10:37 History [ProAir HFA Inhaler] Hydralazine HCl 50 mg PO TID #90 tab 12/28/19 12/03/20 Unknown Rx Pantoprazole [Protonix TAB] 40 mg PO QDAY #30 tab 12/28/19 12/03/20 Unknown Rx Prednisone [predniSONE 10 mg 10 mg PO .TAPER #1 tab.ds.pk 12/28/19 12/03/20 Un known Rx (6-Day Pack, 21 Tabs)] carvediloL [Coreg] 12.5 mg PO BID #60 tab 12/28/19 12/03/20 Unknown Rx levoFLOXacin [Levaquin TAB] 750 mg PO Q24HR #3 tablet 12/28/19 12/03/20 Unknown Rx HYDROcodone/ACETAMINOPHEN 1 each PO Q6HR PRN #9 tab 08/16/21 Unknown Rx [Hydrocodone-Acetamin 2.5-325] Metoclopramide [Reglan] 10 mg PO Q6HR PRN #20 tab 08/16/21 Unknown Rx Sulfamethoxazole/Trimethoprim 1 each PO BID #9 tab 08/16/21 Unknown Rx [Bactrim DS TAB] ED Physical Exam - General Limitations: No Limitations General appearance: alert, anxious, obese - Head Head exam: Present: atraumatic, normocephalic - Eye Eye exam: Present: normal appearance, EOMI. Absent: nystagmus - ENT ENT exam: Present: normal exam, normal orophraynx, mucous membranes moist, normal external ear exam - Neck Neck exam: Present: normal inspection, full ROM. Absent: tenderness, meningismus - Respiratory Respiratory exam: Present: normal lung sounds bilaterally. Absent: respiratory distress, wheezes, rales, rhonchi, stridor, decreased breath sounds - Cardiovascular Cardiovascular Exam: Present: regular rate, normal rhythm, normal heart sounds. Absent: bradycardia, tachycardia, irregular rhythm, systolic murmur, diastolic murmur, rubs, gallop - GI/Abdominal GI/Abdominal exam: Present: soft, distended, tenderness. Absent: guarding, rebound, rigid, pulsatile mass - Extremities Exam Extremities exam: Present: normal inspection, full ROM, other (2+ pulses noted in the bilateral upper and lower extremities. There is no palpable cord. negative Homans sign. Muscular compartments are soft. The pelvis is stable.). Absent: pedal edema, calf tenderness - Back Exam Back exam: Present: normal inspection, CVA tenderness (R). Absent: CVA tende rness (L), muscle spasm, paraspinal tenderness, vertebral tenderness - Neurological Exam Neurological exam: Present: alert, oriented X3, other (No facial droop. Tongue midline. Extraocular movements intact bilaterally. Facial sensation intact to light touch in V1, V2, V3 distribution bilaterally. 5 and a 5 strength in 4 extremities. Sensation intact to light touch in 4 extremities.). Absent: motor sensory deficit - Psychiatric Psychiatric exam: Present: anxious - Skin Skin exam: Present: warm, dry, intact, normal color. Absent: rash ED Course Vital Signs 08/16/21 08/16/21 08/16/21 10:48 10:52 18:49 Temperature 98.5 F Pulse Rate 96 H Respiratory 18 Rate Blood Pressure 240/140 150/93 [Left] O2 Sat by Pulse 98 Oximetry O2 Sat by Pulse 99 Oximetry [ Digit-Finger] - Reevaluation(s) Reevaluation #1: 08/16/21 17:01 Differential diagnosis, including but not limited to: UTI, bladder outlet obstruction, renal colic, pyelonephritis Assessment and plan: 61-year-old female presenting with bladder outlet obstruction. She can tolerate hydrocodone, and reports that she only gets provided with morphine. Medicate with antiemetic medication hydromorphone. Mild renal insufficiency likely secondary to bladder outlet obstruction. Recommend Piña catheter, with leg bag. Recommend urinalysis and urine culture. CT scan abdomen pelvis reviewed and appreciated. Patient will need to follow- up with outpatient gynecology for uterine mass, and she will also need to follow-up with outpatient urology for trial of void. Currently awaiting placement of Piña catheter, and urinalysis results. 08/16/21 18:[address] scan findings to patient. She appears to have a uterine mass which is compressing the bladder. Piña catheter in place, draining clear yellow urine. Specifically counseled patient on need to follow-up with outpatient urology, for trial of void, as well as outpatient gynecology for definitive evaluation. Also counseled patient on recommendation for discharge with Piña catheter leg bag, given bladder outlet obstruction. Specifically advised patient that if Piña catheter is removed, she will likely develop urinary retention again, which in turn could cause renal insufficiency, renal failure, hyperkalemia and . Patient articulated understanding. She is requesting additional pain medic ation. Have ordered additional hydromorphone 08/16/21 19:37 Final reassessment. Urinalysis demonstrates bacteriuria with pyuria. Discharged with Bactrim. I have had multiple recurrent and repeat discussions with patient regarding rationale for discharge with Piña catheter. I have explained to the patient multiple times that she has a uterine mass, possibly a tumor, compressing on her bladder, and that she would need to follow-up urgently as an outpatient with both urology, and gynecology. Patient articulates understanding Reevaluation #2: 08/16/21 19:43 Patient reports she can take hydrocodone without difficulty. - Pulse Oximetry Interpretation Digit-Finger Initial Pulse Oximetry Readin O2 Sat by Pulse Oximetry: 99 Actions Taken: none ED Medical Decision Making - Lab Data Result diagrams: 08/16/21 13:50 08/16/21 13:50 Vital Signs 08/16/21 08/16/21 10:48 10:52 Temperature 98.5 F Pulse Rate 96 H Respiratory 18 Rate Blood Pressure 240/140 150/93 [Left] O2 Sat by Pulse 98 Oximetry Lab Results 08/16/21 08/16/21 08/16/21 Range/Units 13:50 13:50 15:35 WBC 10.0 (4.5-11.0) K/mm3 RBC 4.50 (3.65-5.03) M/mm3 Hgb 14.1 (10.1-14.3) gm/dl Hct 42.1 (30.3-42.9) % MCV 94 (79-97) fl MCH 31 (28-32) pg MCHC 34 (30-34) % RDW 13.6 (13.2-15.2) % Plt Count 409 (140-440) K/mm3 Sodium 139 (137-145) mmol/L Potassium 3.9 (3.6-5.0) mmol/L Chloride 99.7 (98-107) mmol/L Carbon Dioxide 24 (22-30) mmol/L Anion Gap 19 mmol/L BUN 16 (7-17) mg/dL Creatinine 1.8 H (0.6-1.2) mg/dL Estimated GFR 34 ml/min BUN/Creatinine Ratio 9 % Glucose 164 H (65-100) mg/dL Calcium 9.7 (8.4-10.2) mg/dL Phosphorus 3.70 (2.5-4.5) mg/dL Magnesium 1.80 (1.7-2.3) mg/dL - Radiology Data Radiology results: pending, report reviewed, image reviewed CT abdomen pelvis wo con INDICATION / CLINICAL INFORMATION: Acute urinary retention. TECHNIQUE: Axial CT imaging of abdomen and pelvis was obtained without contrast. Coronal and sagittal reformatted imaging obtained and reviewed. All CT scans at this location are performed using CT dose reduction for ALARA by means of automated exposure control. COMPARISON: None available. FINDINGS: CT abdomen without contrast: Nodularity is again noted in the right lobe of the liver near the dome, unchanged from CT chest 12/27/2019. There are a few simple cysts seen within the liver. Spleen, pancreas, and gallbladder all appear grossly unremarkable. Abdominal aorta is of normal caliber. 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 No hydronephrosis or urinary tract calculi are noted. Both adrenal glands are diffusely nodular in appearance. This is not appreciably changed from prior chest CT. CT pelvis without contrast demonstrates mildly enlarged uterus. Arising from the anterior aspect of the uterus fundus, there is a solid mass measuring approximately 5 cm. The appearance is most likely an exophytic uterine fibroid. This is causing some mass effect on the dome of the bladder. No additional pelvic mass noted. No free fluid. Mild sigmoid diverticulosis is present. A normal appendix is identified in the right lower quadrant. The remainder of the GI tract is unremarkable. No acute finding within the lung bases. No acute osseous abnormality.. IMPRESSION: 1. There is a 5 cm solid mass arising from the anterior aspect of the uterine fundus causing significant mass effect on the dome of the urinary bladder. The mass is most likely a uterine fibroid. 2. Mild sigmoid diverticulosis. 3. Nodularity is seen within the right lobe of the liver unchanged from [address] Signer Name: Edyta Duncan MD Signed: 08/16/2021 3:52 PM Workstation Name: [id number] Critical care attestation.: If time is entered above; I have spent that time in minutes in the direct care of this critically ill patient, excluding procedure time. ED Disposition Clinical Impression: Uterine mass, Bacteriuria, Acute bilateral lower abdominal pain, Urinary retention, Elevated blood pressure reading, Renal insufficiency Disposition: 01 HOME / SELF CARE / HOMELESS Is pt being admited?: No Does the pt Need Aspirin: No Condition: Good Additional Instructions: Keep the Piña catheter in place to leg bag. Cultures were sent today, and results will be available in the next 3 to 5 days. Please have your primary care doctor contact the medical records department to obtain culture results. Do not take Motrin, ibuprofen, Naprosyn, Aleve. Patient has a CT scan of the abdomen pelvis today which demonstrated a uterine mass pressing on the bladder. It is very important to follow-up with outpatient gynecology within the next 2 weeks, to make certain that this is not a cancer, malignancy. It is also important to follow-up with an outpatient urologist, within the next week, to evaluate for trial of void. The patient was found to have elevated blood pressure initially in the emergency room, likely secondary to pain. She is encouraged to follow-up with her primary care doctor within the next month for elevated blood pressure. Patient may take Tylenol [id number], 650 mg by mouth, every 4-6 hours as needed for pain. Patient may take the hydrocodone for breakthrough pain. When taking this medication, do not drive, consume alcohol, or make important decisions. Take the antibiotics as directed. [facility] is a local urology practice. [facility] is a local gynecology practice. [place] [facility] is a local primary care internal medicine clinic. Please return to the emergency room right away with new pain, worsened pain, migration of pain, projectile vomiting, change in mental status, confusion, inability tolerate liquid feeds, new, worsened or different symptoms not present on the initial emergency room evaluation Referrals: [facility] [Provider Group] - 3-[address] [facility], [facility] [Provider Group] - 3-5 Days [facility] [Provider Group] - 3-5 Days
--- NOTE | 2021-08-16 16:56 | Cat Scan Report ---
CT abdomen pelvis wo con INDICATION / CLINICAL INFORMATION: Acute urinary retention. TECHNIQUE: Axial CT imaging of abdomen and pelvis was obtained without contrast. Coronal and sagittal reformatte d imaging obtained and reviewed. All CT scans at this location are performed using CT dose reduction for ALARA by means of automated exposure control. COMPARISON: None available. FINDINGS: CT abdomen without contrast: Nodularity is again noted in the right lobe of the liver near the dome, unchanged from CT chest 12/27/2019. There are a few simple cysts seen within the liver. Spleen, pancre as, and gallbladder all appear grossly unremarkable. Abdominal aorta is of normal caliber. 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 No hydronephrosis or urinary tract bina culi are noted. Both adrenal glands are diffusely nodular in appearance. This is not appreciably mcconnell ged from prior chest CT. CT pelvis without contrast demonstrates mildly enlarged uterus. Arising from the anterior aspect of t he uterus fundus, there is a solid mass measuring approximately 5 cm. The appearance is most likely a n exophytic uterine fibroid. This is causing some mass effect on the dome of the bladder. No additional pelvic mass noted. No free fluid. Mild sigmoid diverticulosis is present. A normal appe ndix is identified in the right lower quadrant. The remainder of the GI tract is unremarkable. No acute finding within the lung bases. No acute osseous abnormality.. IMPRESSION: 1. There is a 5 cm solid mass arising from the anterior aspect of the uterine fundus causing signific ant mass effect on the dome of the urinary bladder. The mass is most likely a uterine fibroid. 2. Mild sigmoid diverticulosis. 3. Nodularity is seen within the right lobe of the liver unchanged from [address] Signer Name: Edyta Duncan MD Signed: 08/16/2021 4:52 PM Workstation Name: [id number]
[2021-08-16] MEDS ORDERED: HYDROmorphone 1 MG/1 ML INJ IV ONE (18:30)
[2021-08-16 18:58] LABS: Bilirubin,Urine NEG (Negative); Blood,Urine NEG (Negative); Color,Urine Amber (Yellow)
[2021-08-16 19:05] LABS: Bacteria,Urine 1+ /HPF (Negative); Hyaline Casts,Urine 3 /LPF; Mucus,Urine 2+ /HPF
[2021-08-16] MEDS ORDERED: SULFAMETHOXAZOLE/TRIMETHOPRIM 800/160MG DS TAB PO ONE (19:37)
[2021-08-16 20:14] VITALS: BP 161/90
== END 2021-08-16 20:14 | disposition home or self-care (01) ==
LOC: ED 10:45
DX: R10.30 Lower abdominal pain, unspecified (principal); R33.9 Retention of urine, unspecified; I10 Essential (primary) hypertension; N28.9 Disorder of kidney and ureter, unspecified; R82.71 Bacteriuria; E10.9 Type 1 diabetes mellitus without complications; J45.909 Unspecified asthma, uncomplicated; Z91.09 Other allergy status, other than to drugs and biological substances; Z87.891 Personal history of nicotine dependence; Z79.899 Other long term (current) drug therapy
CPT/HCPCS: 36415; 74176; 80048; 81001; 83735; 84100; 85027; 87086; 96374; 96375; 96376; 99284; J1170; J2765

== ENCOUNTER 2021-08-17 10:48 | Emergency (ER) | payer MEDICAID ==
[2021-08-17 11:00] VITALS: BP 144/86
--- NOTE | 2021-08-17 13:01 | Emergency Department Report ---
ED General Adult HPI - General Chief complaint: Urogenital-Female Stated complaint: LOOSE CATHER/ABDOMINAL PAIN Time Seen by Provider: 08/17/21 11:36 Source: EMS Mode of arrival: Stretcher Limitations: No Limitations - History of Present Illness Initial comments: 61-year-old black female presents to the emergency department for evaluation of leaking catheter. She states that she had a Piña catheter placed on yesterday and when she woke up this morning catheter was dislodged from the bag and leaking all over the place. She states that she attempted to replace the tubing to the bag but it keeps leaking, so she decided to return to the emergency department to have catheter evaluated. She is without any other complaints of at this time. MD Complaint: Leaking catheter -: Sudden, days(s) (1) Severity scale (0 -10): 0 Associated Symptoms: denies other symptoms Treatments Prior to Arrival: other (Attempted to replace tube to bag) - Related Data Home Medications Medication Instructions Recorded Confirmed Last Taken Albuterol Mdi (or & Nicu Only) 2 puff IH QID PRN 12/27/19 12/03/20 12/03/20 10:37 [ProAir HFA Inhaler] Previous Rx's Medication Instructions Recorded Last Taken Type Hydralazine HCl 50 mg PO TID #90 tab 12/28/19 Unknown Rx Pantoprazole [Protonix TAB] 40 mg PO QDAY #30 tab 12/28/19 Unknown Rx Prednisone [predniSONE 10 mg 10 mg PO .TAPER #1 tab.ds.pk 12/28/19 Unknown Rx (6-Day Pack, 21 Tabs)] carvediloL [Coreg] 12.5 mg PO BID #60 tab 12/28/19 Unknown Rx levoFLOXacin [Levaquin TAB] 750 mg PO Q24HR #3 tablet 12/28/19 Unknown Rx HYDROcodone/ACETAMINOPHEN 1 each PO Q6HR PRN #9 tab 08/16/21 Unknown Rx [Hydrocodone-Acetamin 2.5-325] Metoclopramide [Reglan] 10 mg PO Q6HR PRN #20 tab 08/16/21 Unknown Rx Sulfamethoxazole/Trimethoprim 1 each PO BID #9 tab 08/16/21 Unknown Rx [Bactrim DS TAB] HYDROcodone/APAP 5-325 [[place]ear 1 each PO Q6HR PRN #10 tablet 08/20/21 Unknown Rx 5/325] Phenazopyridine [Pyridium] 200 mg PO TID #6 tab 08/20/21 Unknown Rx Allergies Allergy/AdvReac Type Severity Reaction Status Date / Time morphine Allergy Hives Verified 08/17/21 10:59 ED Review of Systems ROS: Stated complaint: LOOSE CATHER/ABDOMINAL PAIN Other details as noted in HPI Comment: All other systems reviewed and negative Constitutional: denies: chills, fever, malaise, weakness ENT: denies: congestion Respiratory: denies: shortness of breath Cardiovascular: denies: chest pain, palpitations Gastrointestinal: denies: abdominal pain, nausea, vomiting Genitourinary: denies: urgency, dysuria Musculoskeletal: denies: back pain Skin: denies: lesions Neurological: denies: headache, weakness ED Past Medical Hx - Past Medical History Previous Medical History?: Yes Hx Hypertension: Yes Hx Diabetes: Yes (Type 1) Hx Asthma: Yes Hx COPD: Yes Additional medical history: Bronchitis - Social History Smoking Status: Unknown if ever smoked - Medications Home Medications: Home Medications Medication Instructions Recorded Confirmed Last Taken Type Albuterol Mdi (or & Nicu Only) 2 puff IH QID PRN 12/27/19 12/03/20 12/03/20 10:37 History [ProAir HFA Inhaler] Hydralazine HCl 50 mg PO TID #90 tab 12/28/19 12/03/20 Unknown Rx Pantoprazole [Protonix TAB] 40 mg PO QDAY #30 tab 12/28/19 12/03/20 Unknown Rx Prednisone [predniSONE 10 mg 10 mg PO .TAPER #1 tab.ds.pk 12/28/19 12/03/20 U nknown Rx (6-Day Pack, 21 Tabs)] carvediloL [Coreg] 12.5 mg PO BID #60 tab 12/28/19 12/03/20 Unknown Rx levoFLOXacin [Levaquin TAB] 750 mg PO Q24HR #3 tablet 12/28/19 12/03/20 Unknown Rx HYDROcodone/ACETAMINOPHEN 1 each PO Q6HR PRN #9 tab 08/16/21 Unknown Rx [Hydrocodone-Acetamin 2.5-325] Metoclopramide [Reglan] 10 mg PO Q6HR PRN #20 tab 08/16/21 Unknown Rx Sulfamethoxazole/Trimethoprim 1 each PO BID #9 tab 08/16/21 Unknown Rx [Bactrim DS TAB] HYDROcodone/APAP 5-325 [[place] 1 each PO Q6HR PRN #10 tablet 08/20/21 Unknown Rx 5/325] Phenazopyridine [Pyridium] 200 mg PO TID #6 tab 08/20/21 Unknown Rx ED Physical Exam - General Limitations: No Limitations General appearance: alert, in no apparent distress - Head Head exam: Present: atraumatic, normocephalic - Eye Eye exam: Present: normal appearance. Absent: conjunctival injection - Neck Neck exam: Present: normal inspection. Absent: tenderness, lymphadenopathy - Respiratory Respiratory exam: Absent: respiratory distress - Cardiovascular Cardiovascular Exam: Present: regular rate - GI/Abdominal GI/Abdominal exam: Absent: distended, tenderness - Extremities Exam Extremities exam: Present: normal inspection - Back Exam Back exam: Present: normal inspection - Neurological Exam Neurological exam: Present: alert, oriented X3 - Psychiatric Psychiatric exam: Present: normal affect, normal mood - Skin Skin exam: Present: warm, dry, intact, normal color ED Course Vital Signs 08/17/21 10:57 Temperature 98.6 F Pulse Rate 96 H Respiratory 17 Rate Blood Pressure 144/86 [Left] O2 Sat by Pulse 100 Oximetry - Procedure Description Procedures done: After close examination, Piña catheter tubing noted to be attached to the wrong and of drainage and leg bag. New leg bag obtained and placed correctly per fast-track nurse. No drainage noted from catheter after placed on correctly. ED Medical Decision Making - Medical Decision Making 61-year-old black female presents to the emergency department for evaluation of leaking catheter. She states that she had a Piña catheter placed on yesterday and when she woke up this morning catheter was dislodged from the bag and leaking all over the place. She states that she attempted to replace the tubing to the bag but it keeps leaking, so she decided to return to the emergency department to have catheter evaluated. She is without any other complaints of at this juvenal Physical exam unremarkable. Piña catheter leakage repaired per my procedure note, and patient discharged back home. She is advised to return to the emergency department as needed. She verbalizes understanding of and agreement with plan of care. Critical care attestation.: If time is entered above; I have spent that time in minutes in the direct care of this critically ill patient, excluding procedure time. ED Disposition Clinical Impression: Leakage from urinary catheter Disposition: HOME / SELF CARE / HOMELESS Is pt being admited?: No Does the pt Need Aspirin: No Condition: Stable Instructions: Indwelling Urinary Catheter Care, Adult Referrals: PRIMARY CARE, [Primary Care Provider] - 3-5 Days Time of Disposition: 13:00
== END 2021-08-17 13:14 | disposition home or self-care (01) ==
LOC: ED 10:48
DX: T83.038A Leakage of other urinary catheter, initial encounter (principal)
CPT/HCPCS: 51702; 99283

== ENCOUNTER 2021-08-20 06:52 | Emergency (ER) | payer MEDICAID ==
--- NOTE | 2021-08-20 07:20 | Emergency Department Report ---
HPI - General Chief Complaint: Urogenital-Female Time Seen by Provider: 08/20/21 07:00 - HPI HPI: Room 5 The patient is a 61-year-old female present with a chief complaint of urine leaking around Piña. Patient had a Piña catheter placed for urinary obstruction several days ago in this ED. Patient states this morning she developed suprapubic pressure. The patient states she felt as though she needed to wipe her self and noticed blood on the tissue. The patient states she did not realize urine was coming around the Piña catheter as her clothes were wet. Patient was given a prescription for Bactrim during her previous ED visit and the patient states she has been taking them as prescribed. The patient has not yet followed up with urology or gynecology states she has a gynecological referral from previous visit ED Past Medical Hx - Past Medical History Previous Medical History?: Yes Hx Hypertension: Yes Hx Diabetes: Yes (Type 1) Hx Asthma: Yes Hx COPD: Yes Additional medical history: Bronchitis - Surgical History Past Surgical History?: No - Family History Family history: no significant - Social History Smoking Status: Former Smoker (None x30 years) Substance Use Type: None (Denies illicit drug use) - Medications Home Medications: Home Medications Medication Instructions Recorded Confirmed Last Taken Type Albuterol Mdi (or & Nicu Only) 2 puff IH QID PRN 12/27/19 12/03/20 12/03/20 10:37 History [ProAir HFA Inhaler] Hydralazine HCl 50 mg PO TID #90 tab 12/28/19 12/03/20 Unknown Rx Pantoprazole [Protonix TAB] 40 mg PO QDAY #30 tab 12/28/19 12/03/20 Unknown Rx Prednisone [predniSONE 10 mg 10 mg PO .TAPER #1 tab.ds.pk 12/28/19 12/03/20 Unknown Rx (6-Day Pack, 21 Tabs)] carvediloL [Coreg] 12.5 mg PO BID #60 tab 12/28/19 12/03/20 Unknown Rx levoFLOXacin [Levaquin TAB] 750 mg PO Q24HR #3 tablet 12/28/19 12/03/20 Unknown Rx HYDROcodone/ACETAMINOPHEN 1 each PO Q6HR PRN #9 tab 08/16/21 Unknown Rx [Hydrocodone-Acetamin 2.5-325] Metoclopramide [Reglan] 10 mg PO Q6HR PRN #20 tab 08/16/21 Unknown Rx Sulfamethoxazole/Trimethoprim 1 each PO BID #9 tab 08/16/21 Unknown Rx [Bactrim DS TAB] HYDROcodone/APAP 5-325 [[place] 1 each PO Q6HR PRN #10 tablet 08/20/21 Unknown Rx 5/325] Phenazopyridine [Pyridium] 200 mg PO TID #6 tab 08/20/21 Unknown Rx ED Review of Systems ROS: Stated complaint: BLOOD IN CATHETER Other details as noted in HPI Constitutional: no symptoms reported Eyes: denies: eye pain ENT: denies: throat pain Respiratory: no symptoms reported Cardiovascular: denies: chest pain Endocrine: no symptoms reported Gastrointestinal: abdominal pain (Suprapubic) Genitourinary: hematuria Musculoskeletal: denies: back pain Neurological: denies: headache Physical Exam - Physical Exam Vital Signs: Vital Signs 08/20/21 06:53 Temperature 98.7 F Pulse Rate 96 H Respiratory 18 Rate Blood Pressure 169/100 O2 Sat by Pulse 100 Oximetry Physical Exam: GENERAL: The patient is well-developed well-nourished female lying on stretcher not appearing to be in acute distress. [] HEENT: Normocephalic. Atraumatic. Extraocular motions are intact. Patient has moist mucous membranes. NECK: Supple. Trachea midline CHEST/LUNGS: Clear to auscultation. There is no respiratory distress noted. HEART/CARDIOVASCULAR: Regular. There is no tachycardia. There is no gallop rub or murmur. ABDOMEN: Abdomen is soft, with suprapubic discomfort to palpation. There is no rebound or guarding. There is no abdominal distention. SKIN: There is no rash. There is no edema. There is no diaphoresis. NEURO: The patient is awake, alert, and oriented. The patient is cooperative. The patient has no focal neurologic deficits. The patient has normal speech. GCS 15 MUSCULOSKELETAL: There is no evidence of acute injury. ED Course Vital Signs 08/20/21 06:53 Temperature 98.7 F Pulse Rate 96 H Respiratory 18 Rate Blood Pressure 169/100 O2 Sat by Pulse 100 Oximetry ED Medical Decision Making - Lab Data Laboratory Tests 08/20/21 08:29 Urine Color Yellow Urine Turbidity Clear Urine pH 7.5 H Ur Specific [place] 1.015 Urine Protein <15 mg/dl Urine Glucose (UA) Negative Urine Ketones Negative Urine Blood Moderate A Urine Nitrite Negative Ur Reducing Substances Not Reportable Urine Bilirubin Negative Urine Ictotest Not Reportable Urine Urobilinogen < 2.0 Ur Leukocyte Esterase 2+ Urine WBC (Auto) 4.0 Urine RBC (Auto) 20.0 U Epithel Cells (Auto) < 1.0 Urine Bacteria (Auto) 1+ Urine Mucus Few - Differential Diagnosis UTI, need for larger Piña Critical care attestation.: If time is entered above; I have spent that time in minutes in the direct care of this critically ill patient, excluding procedure time. ED Disposition Clinical Impression: Piña catheter problem Disposition: HOME / SELF CARE / HOMELESS Is pt being admited?: No Does the pt Need Aspirin: No Condition: Stable Instructions: Indwelling Urinary Catheter Care, Adult Additional Instructions: Return to the emergency department should you develop worsening symptoms, inability to tolerate food or liquids, high fever or any other concerns Prescriptions: HYDROcodone/APAP 5-325 [[place] 5/325] 1 each PO Q6HR PRN #10 tablet PRN Reason: Pain Phenazopyridine [Pyridium] 200 mg PO TID #6 tab Referrals: [facility] [Provider Group] - [facility] [Provider Group] - [facility] Time of Disposition: 11:00
[2021-08-20 10:39] LABS: Bacteria,Urine 1+ /HPF (Negative); Mucus,Urine FEW /HPF
[2021-08-20 10:45] LABS: Bilirubin,Urine Negative (Negative); Blood,Urine Moderate (Negative); Color,Urine Yellow (Yellow)
[2021-08-20 10:46] LABS: PH,Urine 7.5 (5.0-7.0); Protein,Urine <15 mg/dL mg/dL (Negative); Urobilinogen,Urine < 2.0 mg/dL (<2.0)
[2021-08-20 11:12] VITALS: BP 166/95
== END 2021-08-20 12:02 | disposition home or self-care (01) ==
LOC: ED 06:52
DX: T83.83XA Hemorrhage due to genitourinary prosthetic devices, implants and grafts, initial encounter (principal); I10 Essential (primary) hypertension; E10.9 Type 1 diabetes mellitus without complications; J44.9 Chronic obstructive pulmonary disease, unspecified; Z87.891 Personal history of nicotine dependence; Y83.9 Surgical procedure, unspecified as the cause of abnormal reaction of the patient, or of later complication, without mention of misadventure at the time of the procedure; Y92.89 Other specified places as the place of occurrence of the external cause
CPT/HCPCS: 51702; 81001; 99284

== ENCOUNTER 2021-09-05 09:14 | Emergency (ER) | payer MEDICAID ==
--- NOTE | 2021-09-05 11:21 | Emergency Department Report ---
ED Female HPI - General Chief complaint: Tube Replacement Stated complaint: PAIN FROM LOOSE CATH Time Seen by Provider: 09/05/21 11:08 Source: EMS Mode of arrival: Stretcher Limitations: No Limitations - History of Present Illness Initial comments: Patient is a 59-year-old female presenting to ED with request for removal of her Piña catheter. She was seen here on 08/21/2019 for urinary obstruction and dysuria. Urinalysis was not consistent with UTI. She was discharged home on Pyridium. States he has had the catheter in since and is ready to have it removed. She denies any fever or recent illness. - Related Data Home Medications Medication Instructions Recorded Confirmed Last Taken Albuterol Mdi (or & Nicu Only) 2 puff IH QID PRN 12/27/19 12/03/20 12/03/20 10:37 [ProAir HFA Inhaler] Previous Rx's Medication Instructions Recorded Last Taken Type Hydralazine HCl 50 mg PO TID #90 tab 12/28/19 Unknown Rx Pantoprazole [Protonix TAB] 40 mg PO QDAY #30 tab 12/28/19 Unknown Rx Prednisone [predniSONE 10 mg 10 mg PO .TAPER #1 tab.ds.pk 12/28/19 Unknown Rx (6-Day Pack, 21 Tabs)] carvediloL [Coreg] 12.5 mg PO BID #60 tab 12/28/19 Unknown Rx levoFLOXacin [Levaquin TAB] 750 mg PO Q24HR #3 tablet 12/28/19 Unknown Rx HYDROcodone/ACETAMINOPHEN 1 each PO Q6HR PRN #9 tab 08/16/21 Unknown Rx [Hydrocodone-Acetamin 2.5-325] Metoclopramide [Reglan] 10 mg PO Q6HR PRN #20 tab 08/16/21 Unknown Rx Sulfamethoxazole/Trimethoprim 1 each PO BID #9 tab 08/16/21 Unknown Rx [Bactrim DS TAB] HYDROcodone/APAP 5-325 [[place] 1 each PO Q6HR PRN #10 tablet 08/20/21 Unknown Rx 5/325] Phenazopyridine [Pyridium] 200 mg PO TID #6 tab 08/20/21 Unknown Rx Allergies Allergy/AdvReac Type Severity Reaction Status Date / Time morphine Allergy Hives Verified 08/17/21 10:59 ED Review of Systems ROS: Stated complaint: PAIN FROM LOOSE CATH Other details as noted in HPI Constitutional: no symptoms reported Respiratory: denies: cough, shortness of breath, wheezing Cardiovascular: denies: chest pain, palpitations Gastrointestinal: denies: abdominal pain, nausea, diarrhea Genitourinary: denies: dysuria Musculoskeletal: denies: back pain, joint swelling, arthralgia Skin: denies: rash, lesions Neurological: denies: headache, weakness, paresthesias Psychiatric: denies: anxiety, depression ED Past Medical Hx - Past Medical History Previous Medical History?: Yes Hx Hypertension: Yes Hx Diabetes: Yes (Type 1) Hx Asthma: Yes Hx COPD: Yes Additional medical history: Bronchitis - Social History Smoking Status: Never Smoker Substance Use Type: None - Medications Home Medications: Home Medications Medication Instructions Recorded Confirmed Last Taken Type Albuterol Mdi (or & Nicu Only) 2 puff IH QID PRN 12/27/19 12/03/20 12/03/20 10:37 History [ProAir HFA Inhaler] Hydralazine HCl 50 mg PO TID #90 tab 12/28/19 12/03/20 Unknown Rx Pantoprazole [Protonix TAB] 40 mg PO QDAY #30 tab 12/28/19 12/03/20 Unknown Rx Prednisone [predniSONE 10 mg 10 mg PO .TAPER #1 tab.ds.pk 12/28/19 12/03/20 Unknown Rx (6-Day Pack, 21 Tabs)] carvediloL [Coreg] 12.5 mg PO BID #60 tab 12/28/19 12/03/20 Unknown Rx levoFLOXacin [Levaquin TAB] 750 mg PO Q24HR #3 tablet 12/28/19 12/03/20 Unknown Rx HYDROcodone/ACETAMINOPHEN 1 each PO Q6HR PRN #9 tab 08/16/21 Unknown Rx [Hydrocodone-Acetamin 2.5-325] Metoclopramide [Reglan] 10 mg PO Q6HR PRN #20 tab 08/16/21 Unknown Rx Sulfamethoxazole/Trimethoprim 1 each PO BID #9 tab 08/16/21 Unknown Rx [Bactrim DS TAB] HYDROcodone/APAP 5-325 [[place] 1 each PO Q6HR PRN #10 tablet 08/20/21 Unknown Rx 5/325] Phenazopyridine [Pyridium] 200 mg PO TID #6 tab 08/20/21 Unknown Rx ED Physical Exam - General Limitations: No Limitations General appearance: alert, in no apparent distress - Head Head exam: Present: atraumatic, normocephalic - Respiratory Respiratory exam: Present: normal lung sounds bilaterally. Absent: respiratory distress - Cardiovascular Cardiovascular Exam: Present: regular rate, normal rhythm, normal heart sounds - GI/Abdominal GI/Abdominal exam: Present: soft. Absent: distended, tenderness - Rectal Rectal exam: Present: deferred - External exam: Present: other (Piña catheter in place) - Neurological Exam Neurological exam: Present: alert, oriented X3 - Psychiatric Psychiatric exam: Present: normal affect, normal mood - Skin Skin exam: Present: warm, dry, intact, normal color ED Course Vital Signs 09/05/21 09/05/21 09/05/21 09:34 10:32 10:36 Temperature 98.7 F Pulse Rate 96 H Respiratory 18 18 Rate Blood Pressure Blood Pressure 147/115 [Left] O2 Sat by Pulse 98 99 98 Oximetry 09/05/21 09/05/21 09/05/21 10:38 10:45 11:01 Temperature Pulse Rate 107 H Respiratory 18 Rate Blood Pressure 162/109 175/102 Blood Pressure 162/109 [Left] O2 Sat by Pulse 99 97 97 Oximetry 09/05/21 11:15 Temperature Pulse Rate Respiratory Rate Blood Pressure 175/102 Blood Pressure [Left] O2 Sat by Pulse 96 Oximetry ED Medical Decision Making - Medical Decision Making Piña catheter removed. Patient stable for discharge. Critical care attestation.: If time is entered above; I have spent that time in minutes in the direct care of this critically ill patient, excluding procedure time. ED Disposition Clinical Impression: Encounter for Piña catheter removal Disposition: 01 HOME / SELF CARE / HOMELESS Is pt being admited?: No Condition: Stable Additional Instructions: Please follow-up with your regular doctor as needed. Please return if you are unable to urinate. Time of Disposition: 12:35
[2021-09-05 11:29] VITALS: BP 175/102
== END 2021-09-05 13:04 | disposition home or self-care (01) ==
LOC: ED 09:14
DX: Z46.6 Encounter for fitting and adjustment of urinary device (principal); I10 Essential (primary) hypertension; E10.8 Type 1 diabetes mellitus with unspecified complications; J44.9 Chronic obstructive pulmonary disease, unspecified; Z88.5 Allergy status to narcotic agent
CPT/HCPCS: 99283